=== PATIENT | female | born 2005 | race Caucasian/White ===

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

== ENCOUNTER 2024-02-08 11:18 | Emergency (ER) | payer SELFPAY ==
[~2024-02-08] VITALS: Ht 170.2 cm; Wt 58.9 kg
[2024-02-08] VITALS (8 sets, daily range): BP systolic 109–140; BP diastolic 63–105
[2024-02-08] MEDS ORDERED: CEPHALEXIN500 M1 PO (11:51)
[2024-02-08] MEDS ORDERED: BACTRIM DS1 TAB PO (11:51)
[2024-02-08] MEDS ORDERED: LIDOcaine HCl 1% (Local Anesth.) 20 ML VIAL IM STA (12:26)
[2024-02-08] MEDS ORDERED: cefTRIAXone SODIUM 1 GM/VIAL SDV IM ONE (12:30)
[2024-02-08] MEDS ORDERED: TRAMADOL HYDROC50 M1 PO (13:09)
== END 2024-02-08 13:10 | disposition home or self-care (01) | DRG 603 ==
LOC: ED 11:18
DX: L03.116 Cellulitis of left lower limb (principal)